=== PATIENT | male | born 1975 | race Caucasian/White ===

== ENCOUNTER 2019-06-09 08:09 | Emergency (ER) | payer SELFPAY ==
--- NOTE | 2019-06-09 10:26 | ER Document Report ---
ED Oral Problem - General Chief Complaint: Toothache Stated Complaint: MOUTH/TOOTH PAIN, FACIAL PAIN Time Seen by Provider: 06/09/19 10:07 Primary Care Provider: LEEANNE YANG [Primary Care Provider] - Follow up as needed WAYLON NUNN MD [[facility] BASED STAFF] - Follow up as needed Notes: 43-year-old male presents with left sided tooth pain that started approximately 1 week ago. Patient states he is also having radiating ear pain and some jaw pain. Patient called and has a dental appointment tomorrow. - Related Data Allergies/Adverse Reactions: No Known Allergies Allergy (Unverified 04/29/13 01:01) Past Medical History - Social History Smoking Status: Never Smoker Chew tobacco use (# tins/day): Yes - occasional Frequency of alcohol use: None Drug Abuse: None Family History: Arthritis Patient has suicidal ideation: No Patient has homicidal ideation: No Pulmonary Medical History: Reports: Hx Asthma Traumatic Medical History: Reports: Hx Fractures - Immunizations Immunizations up to date: Yes Hx Diphtheria, Pertussis, Tetanus Vaccination: Yes Review of Systems - Review of Systems Notes: Constitutional: Negative for fever. HENT: Positive for tooth pain. Eyes: Negative for visual changes. Cardiovascular: Negative for chest pain. Respiratory: Negative for shortness of breath. Gastrointestinal: Negative for abdominal pain, vomiting or diarrhea. Genitourinary: Negative for dysuria. Musculoskeletal: Negative for back pain. Skin: Negative for rash. Neurological: Negative for headaches, weakness or numbness. 10 point ROS negative except as marked above and in HPI. Physical Exam - Vital signs Vitals: Temp Pulse Resp BP Pulse Ox 98.2 F 95 16 146/87 H 99 06/09/19 08:15 06/09/19 08:15 06/09/19 08:15 06/09/19 08:15 06/09/19 08:15 - Notes Notes: GENERAL: Well-appearing, well-nourished and in no acute distress. HEAD: Atraumatic, normocephalic. EYES: Extraocular movements intact, sclera anicteric, conjunctiva are normal. ENT: Dental caries noted throughout mouth, mild gum swelling noted to #16 and #17 without obvious abscess, oropharynx clear without exudates. Moist mucous membranes. No trismus. No tonsillar hypertrophy. NO muffled voice. Uvula midline with edema. NECK: Normal range of motion, supple without lymphadenopathy or JVD. LUNGS: Breath sounds clear to auscultation bilaterally and equal. No wheezes rales or rhonchi. HEART: Regular rate and rhythm without murmurs, rubs or gallops. ABDOMEN: Soft, nontender, normoactive bowel sounds. No guarding, no rebound. No masses appreciated. EXTREMITIES: Normal range of motion, no pitting or edema. No clubbing or cyanosis. NEUROLOGICAL: Cranial nerves II through XII grossly intact. Normal speech, normal gait. PSYCH: Normal mood, normal affect. SKIN: Warm, Dry, normal turgor, no rashes or lesions noted. Course - Re-evaluation Re-evalutation: 06/09/19 Exam consistent with dental caries with mild gum swelling. No obvious abscess. No signs of [employer]. Well appearing, nontoxic. Pt has an appointment with dentist tomorrow. Prescription for Penicillin given with ibuprofen 800 mg TID. All questions/concerns addressed prior to discharge. - Vital Signs Vital signs: Temp Pulse Resp BP Pulse Ox 100.4 F 99 20 150/79 H 98 06/09/19 10:39 06/09/19 10:39 06/09/19 10:39 06/09/19 10:39 06/09/19 10:39 Discharge - Discharge Clinical Impression: Dental caries Condition: Stable Disposition: HOME, SELF-CARE Instructions: Penicillin V K ([facility]), Toothache ([facility]) Additional Instructions: Please take penicillin as prescribed and finish all doses even if you feel bet ter. Take ibuprofen as needed for pain. Follow-up with dentist as scheduled tomorrow. Return to ER for any worsening symptoms including fever, worsening pain, inability to open mouth, swelling to the jaw or tonsils, or any other concerning symptoms to you. Prescriptions: Ibuprofen [Motrin 800 mg Tablet] 800 mg PO Q8H PRN #30 tab PRN Reason: Penicillin V Potassium [Penicillin Vk 500 mg Tablet] 500 mg PO QID #28 tablet Referrals: LEEANNE YANG [Primary Care Provider] - Follow up as needed WAYLON NUNN MD [[facility]] - Follow up as needed
[2019-06-09 10:41] VITALS: BP 150/79
== END 2019-06-09 10:39 | disposition home or self-care (01) ==
LOC: ER 08:09
DX: K02.9 Dental caries, unspecified (principal); K08.89 Other specified disorders of teeth and supporting structures; J45.909 Unspecified asthma, uncomplicated; Z72.0 Tobacco use
CPT/HCPCS: 99282